=== PATIENT | male | born 1985 | race Caucasian/White ===

== ENCOUNTER 2025-08-22 15:06 | Emergency (ER) | payer SELFPAY ==
[2025-08-22 15:24] VITALS: BP 127/73; PULSE 125; RESP 20; O2SAT 96; BMI 24.9
--- NOTE | 2025-08-22 15:25 | ED.OVERDOSE ---
HPI - Overdose General Chief Complaint: ETOH/Substance Use Stated Complaint: OD,1 BAG HEROIN,NO NARCAN,CRYING PER EMS Time Seen by Provider: 08/22/25 15:12 Source: EMS Mode of arrival: EMS History of Present Illness HPI Narrative: 39 years old male with a history of substance abuse presented to the emergency room by ambulance under the influence of drugs he is restless awake and alert denies SI HI, suspect use of fentanyl and cocaine. No Narcan was not given in the field MD complaint: accidental overdose Onset (ago): hour(s) (1) Context: Accidental Overdose: wanted to get high Treatments Prior to Arrival: none Related Data Previous Rx's ?Medication ?Instructions ?Recorded doxycycline hyclate 100 mg capsule 100 mg PO BID 7 days #14 caps 08/22/25 Allergies Allergy/AdvReac Type Severity Reaction Status Date / Time No Known Allergies Allergy Verified 08/22/25 15:29 Review of Systems Constitutional: Constitutional: Reports no additional constitutional complaints Cardiovascular: Cardiovascular: Reports no additional cardiovascular complaints Integumentary/Breasts: Skin/Breast: Reports system reviewed and no additional complaints, except as docu [facility] Past Medical History [facility] Narrative: Polysubstance abuse Social History Social History Alcohol intake: current Alcohol intake frequency: a few times a month Smoked in Last 30 Days: Yes Use of substances other than those prescribed or required for medical reasons: Yes Substance Use Type: Heroin Advance Directives: No Advance Directives Information Provided: Yes Do you have a plan to hurt others: No Plan Physical Exam Exam: Exam: Awake alert restless Vital Signs: Vital Signs: Last Vital Signs Pulse 99 08/22/25 15:50 Resp 20 08/22/25 15:50 BP 105/42 L 08/22/25 15:50 Pulse Ox 97 08/22/25 15:50 O2 Del Method Room Air 08/22/25 15:50 BMI result Body Mass Index 24.9 Const: General: well developed, alert and awake Nutritional Appearance: average body habitus Orientation/consciousness: patient oriented x3 HEENT: Other: Atraumatic Ears: hearing grossly normal bilaterally Mouth: Normal oral and palatal mucosa present Neck: Neck: Yes normal visual inspection Resp: Effort & Inspection: normal respiratory effort Auscultation: clear to auscultation bilaterally Cardio: Jugular venous distension: no JVD Rate: regular rate Rhythm: regular rhythm GI: Inspection: Yes normal to inspection Palpation (GI): Soft to palpation Auscultation: normal bowel sounds Skin: General skin exam: no rashes or lesions noted and elasticity normal Lesions: no lesions Rashes: no rashes Neuro: General: patient oriented x3 Extrem: General: Yes normal to inspection and Yes full ROM Course Reevaluation(s) Reevaluation #1: Signed out to DR Quick off shift now Time: 16:05 Medical Decision Making Medical Decision Making [facility] Narrative: Patient presented after drug he intoxication we will check urine drug screen we will monitor we will have soccer coach. assistant women's basketball coach has seen patient is clear the patient does time. They stated that patient has been given outpatient resources for detox. I did offer take home Narcan kit for the patient. He declines. He states he has multiple kit at home available to him. He will plan to explore the option of outpatient resource for opioid detox. Differential Diagnosis Differential Diagnoses: The differential diagnosis associated with the presentation includes Accidental overdose/polysubstance abuse Admission/Observation Consideration of admission/observation: Escalation of care including admission/observation considered Discharge Plan Discharge Clinical Impression: Polysubstance abuse Patient Disposition: Home, Self-Care Prescriptions: New doxycycline hyclate 100 mg capsule 100 mg PO BID 7 Days Qty: 14 0RF Print Language: Czech
[2025-08-22 15:50] VITALS: BP 105/42; PULSE 99; RESP 20; O2SAT 97
--- NOTE | 2025-08-22 16:00 | PC.NURSE ---
pt is alert and answering questions appropriately, skin appropriate for ethnicity, respirations even and unlabored, pt states doing a bag of heroin but this time it was a different dealer, pt is having hard time staying still/scratching himself all over, vs stable, seizure pads applied to the bed for safety do to the patient unable to stay still at this time
--- NOTE | 2025-08-22 17:25 | MHC.EDTECH ---
This pct changed over patient with one of the nurses the nurses doing the private branch exchange service advisor with me stated she had no issue with this patient keeping his boxers on but i locked up all his other belongings in the [place] door i asked if the crisis attire would be needed for this patient and the nurse doing the private branch exchange service advisor with me said they werent needed
[2025-08-22 17:43] VITALS: BP 116/71; PULSE 100; RESP 20; TEMP 36.7; O2SAT 96
== END 2025-08-22 17:51 | disposition home or self-care (01) ==
PROVIDERS: Emergency Provider Student in an Organized Health Care Education/Training Program
DX: T40.1X1A Poisoning by heroin, accidental (unintentional), initial encounter (principal); Y92.89 Other specified places as the place of occurrence of the external cause
CPT/HCPCS: 99284; S9485